=== PATIENT | female | born 1975 | race Caucasian/White ===

== ENCOUNTER 2016-07-28 12:38 | Emergency (ER) | payer BC ==
--- NOTE | 2016-07-28 13:33 | ED CLINICAL REPORT ---
Clinical Report - Physicians/Mid Levels [facility] [address] [place] [address] 07/28/2016 12:40 [id number] Time Seen: 13:10 Jul 28 2016. Arrived- By private vehicle. Historian- patient. HISTORY OF PRESENT ILLNESS Chief Complaint: BACK PAIN. It is described as being in the area of the mid lumbar spine, lower lumbar spine and right mid lumbar spine. The quality is noted to be "pain". Onset was just prior to arrival and it is still present. No bladder dysfunction, bowel dysfunction, sensory loss or motor loss. Additional history - Pt reports sitting on toilet had pain upon attempting to stand . Pain worsens with movement/ activity. Improves with standing. No driect trauma/ fall. H/o similar. Pt with h/o back pain/ sciatica, as well as neck pain. Denies any current paresthesias. Patient denies an injury. REVIEW OF SYSTEMS No fever, chills, difficulty with urination, hematuria or headache. No depression, difficulty breathing, chest pain or nausea. All systems otherwise negative, except as recorded above. PAST HISTORY The patient has had prior back pain. SOCIAL HISTORY Smoker- current status unknown. Alcohol use. History of drug use: marijuana. Not an IV drug user. ADDITIONAL NOTES The nursing notes have been reviewed. PHYSICAL EXAM Vital Signs: 07/28/2016 12:49 BP: 134/88. HR: 70. RR: 18. O2 saturation: 99%. Temp: 98.7 F. Pain level now: 10. Appearance: Alert. No acute distress. ENT: No pharyngeal erythema. Neck: Normal inspection. Neck nontender. CVS: Heart sounds normal. Respiratory: No respiratory distress. Abdomen: No visible injury. Soft. Back: Soft tissue tenderness (right lumbar region.). (no midline tendernss.). Skin: Skin warm. Normal skin color. Neuro: Oriented X 3. No motor deficit. No sensory deficit. PROGRESS AND PROCEDURES Course of Care: There are no risks for spinal epidural abscess or hematoma as patient is without any risk factors such as IVDA or evidence of active infection, no midline tenderness to percussion. Hence I do not feel emergent imaging with an MRI is indicated. However I did discuss with the patient that if these symptoms develop, or if the pain does not resolve an MRI may need to be done outpatient, or in the ED if symptoms worsen acutely or new onset of the above mentioned symptoms develop. Pt with no red flags, reproducible pain, and status post movement/ standing activity. No direct trauma. FX not suspected. Pt with no suspected cauda equina/ spinal cord mass or abscess, afebrile. Patient is stable. Patient/family counseled. Disposition: Discharged. CLINICAL IMPRESSION Acute lumbar strain. INSTRUCTIONS Apply ice. Limit lifting. Do not work for two days. Prescription Medications: Hydrocodone/APAP 5mg / 325mg: take 1 orally every 6 hours. Dispense twelve (12). Robaxin 750 mg: Take 2 orally every 6 hours as needed for muscle spasm. Dispense thirty (30). No refills. Substitution is permissible. Motrin 800 mg tablets: take 1 tablet orally every 8 hours for 5 days, as needed for pain. Dispense fifteen (15). No refill. Substitution is permissible. Follow-up with: Ruben Steiner MD, [facility], , [place], [address] [place] [address] Follow up. Call for the next available appointment. (Electronically signed by Shell Perez P.A.-C 07/28/2016 13:37)
--- NOTE | 2016-07-28 13:33 | ED ORDER SUMMARY ---
..... Patient: ROSI PRAJAPATI OrderSheet [facility] VisitID: [id number] [place] [address] 41y, F Registration Date/Time: 07/28/2016 ORDER SHEET Weight: 77.1 kg (stated) Allergies: No Known Drug Allergy GENERAL ORDERS: MEDICATION ORDERS: Flexeril PO 10 mg (NOW) (13:09 07/28/2016 Keturah P.A.-C) (Ack 13:21 SStone R.N.) (13:24 SStone R.N.) Hydrocodone-APAP PO 5/325 mg (NOW, HIGH ALERT MEDICATION) (13:09 07/28/2016 Keturah Rajput.AOswald-Saundra) (Ack 13:21 SStone R.N.) (13:24 SStone R.N.) IV FLUIDS: ORDER SHEET NOTES: [Electronically signed by Shell Preez P.A.-C (13:37 07/28/2016)] [Electronically signed by Kinsey Trinidad R.N. (16:55 07/30/2016)] [Electronically locked/signed by Kinsey Trinidad R.N. (16:55 07/30/2016)]
--- NOTE | 2016-07-28 13:33 | ED NURSING NOTES ---
Clinical Report - Nurses [facility] [address] [place] [address] 07/28/2016 12:40 [id number] TRI[facility] Triage time 12:49. Acuity: LEVEL 3. Chief Complaint: BACK PAIN. Alert. MEHREEN COMA SCORE: [place] Coma Scale: 15- eyes open spontaneously (4); best verbal response- oriented x 4 (5); best motor response- obeys commands (6). --12:56 Kinsey Trinidad R.N. 12:49 07/28/16. BP: 134/88. HR: 70. RR: 18. O2 saturation: 99% on room air. Temp: 98.7 F (oral). Pain level now: 11/21. --12:56 Kinsey Trinidad R.N. Weight: 77.1 kg stated. Height/Length: 64 inches Per Patient. BMI: 29.2. --12:53 Kinsey Trinidad R.N. Medications None. --12:51 Kinsey Trinidad R.N. Allergies No Known Drug Allergy. --12:51 Kinsey Trinidad R.N. History Arrived by private vehicle. Historian: patient. Accompanied by family. Primary physician (none). This started last night. ( constant and achy) and describes the quality as a stabbing pain. Relates the location as in the lower lumbar region, right lumbar region, right hip region and right buttock region. It is described as radiating to the right lower extremity. PAST MEDICAL HX: Last normal menstrual period now. SOCIAL HX: Smoker- current status unknown (no). Occasional alcohol use. History of drug use: marijuana. FALL RISK ASSESSMENT: Fall risk assessment completed. No fall risk identified. FUNCTIONAL ASSESSMENT: Functional assessment: no impairments noted. LEARNING NEEDS ASSESSMENT: The learning needs assessment revealed no barriers. --12:56 Kinsey Trinidad R.N. PROBLEMS: Hypertension. Cellulitis. Acute Pain. Sprain. Back Pain. --12:52 Amos, Kinsey, R.N. ADDITIONAL SURGERIES: Finger abscess and surgery. --12:52 Kinsey Trinidad R.N. Assessment GENERAL / NEURO / PSYCH: The patient is awake and alert, appears uncomfortable and is oriented and cooperative. She appears uncomfortable and has good eye contact. RESPIRATORY: Respirations not labored. SKIN: Skin is warm and dry. --12:56 Kinsey Trinidad R.N. Interventions ID band on patient. To treatment room. --12:56 Kinsey Trinidad R.N. PHYSICAL ASSESSMENT 13:00 07/28/16. Ambulatory to room. GENERAL / NEURO / PSYCH: The patient is awake and alert, appears uncomfortable and is oriented and cooperative. She appears uncomfortable and has good eye contact. RESPIRATORY: Respirations not labored. --13:00 Kinsey Trinidad R.N. NURSING PROGRESS NOTES 13:00 07/28/16. Head of bed elevated. Call light placed in reach. Side rails up x 1. Bed placed in lowest position. Brakes of bed on. --13:00 Kinsey Trinidad R.N. 13:24 07/28/2016 Flexeril (Cyclobenzaprine HCl) PO Tablets 10 mg given. --13:24 Tigist Joe R.N. 13:24 07/28/2016 Hydrocodone-APAP (Hydrocodone-Acetaminophen) PO 5/325 mg Tablets 1 tab given. --13:24 Tigist Joe R.N. 13:45 07/28/2016 Flexeril PO Response: no adverse reaction pain is improving. Symptoms have improved. --13:50 Gabe Ramos R.N. 13:45 07/28/2016 Hydrocodone-APAP PO Response: no adverse reaction pain is improving. Symptoms have improved. --13:50 Gabe Ramos R.N. DISPOSITION / DISCHARGE Departure time: 13:50 Jul 28 2016. Condition at departure: improved and stable. The goals identified in the patient's plan of care were met. No learning barriers present. Discharge instructions provided and reviewed with the patient and family. Reviewed warnings (Do not drive under influence of Rx medications). Reviewed medication(s) side effects, precautions, dosing and course information. Prescription(s) given to the patient. Reviewed referral to a primary care physician. Activity restrictions (light lifting, no driving and rest) reviewed. Work note given. Patient and family verbalized understanding. Written instructions provided in Hungarian. The patient was discharged by the physician medical assistant cardiology. She was discharged home and accompanied by spouse. She left the Emergency Department ambulatory and via private vehicle. Family member driving. --13:50 Gabe Ramos R.N. 13:38 07/28/16. BP: 126/84. HR: 63. RR: 20. O2 saturation: 95%. Temp: 98 F. Pain level now: 10/22. --13:50 Gabe Ramos R.N. Locked/Released at 07/30/2016 16:55 by Kinsey Trinidad R.N.
--- NOTE | 2016-07-28 13:33 | ED NURSING NOTES ---
Clinical Report - Nurses [facility] [address] [place] [address] 07/28/2016 12:40 [id number] TRI[facility] Triage time 12:49. Acuity: LEVEL 3. Chief Complaint: BACK PAIN. Alert. MEHREEN COMA SCORE: [place] Coma Scale: 15- eyes open spontaneously (4); best verbal response- oriented x 4 (5); best motor response- obeys commands (6). --12:56 Kinsey Trinidad R.N. 12:49 07/28/16. BP: 134/88. HR: 70. RR: 18. O2 saturation: 99% on room air. Temp: 98.7 F (oral). Pain level now: 11/21. --12:56 Kinsey Trinidad R.N. Weight: 77.1 kg stated. Height/Length: 64 inches Per Patient. BMI: 29.2. --12:53 Kinsey Trinidad R.N. Medications None. --12:51 Kinsey Trinidad R.N. Allergies No Known Drug Allergy. --12:51 Kinsey Trinidad R.N. History Arrived by private vehicle. Historian: patient. Accompanied by family. Primary physician (none). This started last night. ( constant and achy) and describes the quality as a stabbing pain. Relates the location as in the lower lumbar region, right lumbar region, right hip region and right buttock region. It is described as radiating to the right lower extremity. PAST MEDICAL HX: Last normal menstrual period now. SOCIAL HX: Smoker- current status unknown (no). Occasional alcohol use. History of drug use: marijuana. FALL RISK ASSESSMENT: Fall risk assessment completed. No fall risk identified. FUNCTIONAL ASSESSMENT: Functional assessment: no impairments noted. LEARNING NEEDS ASSESSMENT: The learning needs assessment revealed no barriers. --12:56 Kinsey Trinidad R.N. PROBLEMS: Hypertension. Cellulitis. Acute Pain. Sprain. Back Pain. --12:52 Amos, Kinsey, R.N. ADDITIONAL SURGERIES: Finger abscess and surgery. --12:52 Kinsey Trinidad R.N. Assessment GENERAL / NEURO / PSYCH: The patient is awake and alert, appears uncomfortable and is oriented and cooperative. She appears uncomfortable and has good eye contact. RESPIRATORY: Respirations not labored. SKIN: Skin is warm and dry. --12:56 Kinsey Trinidad R.N. Interventions ID band on patient. To treatment room. --12:56 Kinsey Trinidad R.N. PHYSICAL ASSESSMENT 13:00 07/28/16. Ambulatory to room. GENERAL / NEURO / PSYCH: The patient is awake and alert, appears uncomfortable and is oriented and cooperative. She appears uncomfortable and has good eye contact. RESPIRATORY: Respirations not labored. --13:00 Kinsey Trinidad R.N. NURSING PROGRESS NOTES 13:00 07/28/16. Head of bed elevated. Call light placed in reach. Side rails up x 1. Bed placed in lowest position. Brakes of bed on. --13:00 Kinsey Trinidad R.N. 13:24 07/28/2016 Flexeril (Cyclobenzaprine HCl) PO Tablets 10 mg given. --13:24 Tigist Joe R.N. 13:24 07/28/2016 Hydrocodone-APAP (Hydrocodone-Acetaminophen) PO 5/325 mg Tablets 1 tab given. --13:24 Tigist Joe R.N. 13:45 07/28/2016 Flexeril PO Response: no adverse reaction pain is improving. Symptoms have improved. --13:50 Gabe Ramos R.N. 13:45 07/28/2016 Hydrocodone-APAP PO Response: no adverse reaction pain is improving. Symptoms have improved. --13:50 Gabe Ramos R.N. DISPOSITION / DISCHARGE Departure time: 13:50 Jul 28 2016. Condition at departure: improved and stable. The goals identified in the patient's plan of care were met. No learning barriers present. Discharge instructions provided and reviewed with the patient and family. Reviewed warnings (Do not drive under influence of Rx medications). Reviewed medication(s) side effects, precautions, dosing and course information. Prescription(s) given to the patient. Reviewed referral to a primary care physician. Activity restrictions (light lifting, no driving and rest) reviewed. Work note given. Patient and family verbalized understanding. Written instructions provided in Rwandan. The patient was discharged by the physician product development assistant. She was discharged home and accompanied by spouse. She left the Emergency Department ambulatory and via private vehicle. Family member driving. --13:50 Gabe Ramos R.N. 13:38 07/28/16. BP: 126/84. HR: 63. RR: 20. O2 saturation: 95%. Temp: 98 F. Pain level now: 10/22. --13:50 Gabe Ramos R.N. Locked/Released at 07/30/2016 16:55 by Kinsey Trinidad R.N.
--- NOTE | 2016-07-28 13:33 | ED CLINICAL REPORT ---
Clinical Report - Physicians/Mid Levels [facility] [address] [place] [place] [address] 07/28/2016 12:40 [id number] Time Seen: 13:10 Jul 28 2016. Arrived- By private vehicle. Historian- patient. HISTORY OF PRESENT ILLNESS Chief Complaint: BACK PAIN. It is described as being in the area of the mid lumbar spine, lower lumbar spine and right mid lumbar spine. The quality is noted to be "pain". Onset was just prior to arrival and it is still present. No bladder dysfunction, bowel dysfunction, sensory loss or motor loss. Additional history - Pt reports sitting on toilet had pain upon attempting to stand . Pain worsens with movement/ activity. Improves with standing. No driect trauma/ fall. H/o similar. Pt with h/o back pain/ sciatica, as well as neck pain. Denies any current paresthesias. Patient denies an injury. REVIEW OF SYSTEMS No fever, chills, difficulty with urination, hematuria or headache. No depression, difficulty breathing, chest pain or nausea. All systems otherwise negative, except as recorded above. PAST HISTORY The patient has had prior back pain. SOCIAL HISTORY Smoker- current status unknown. Alcohol use. History of drug use: marijuana. Not an IV drug user. ADDITIONAL NOTES The nursing notes have been reviewed. PHYSICAL EXAM Vital Signs: 07/28/2016 12:49 BP: 134/88. HR: 70. RR: 18. O2 saturation: 99%. Temp: 98.7 F. Pain level now: 10. Appearance: Alert. No acute distress. ENT: No pharyngeal erythema. Neck: Normal inspection. Neck nontender. CVS: Heart sounds normal. Respiratory: No respiratory distress. Abdomen: No visible injury. Soft. Back: Soft tissue tenderness (right lumbar region.). (no midline tendernss.). Skin: Skin warm. Normal skin color. Neuro: Oriented X 3. No motor deficit. No sensory deficit. PROGRESS AND PROCEDURES Course of Care: There are no risks for spinal epidural abscess or hematoma as patient is without any risk factors such as IVDA or evidence of active infection, no midline tenderness to percussion. Hence I do not feel emergent imaging with an MRI is indicated. However I did discuss with the patient that if these symptoms develop, or if the pain does not resolve an MRI may need to be done outpatient, or in the ED if symptoms worsen acutely or new onset of the above mentioned symptoms develop. Pt with no red flags, reproducible pain, and status post movement/ standing activity. No direct trauma. FX not suspected. Pt with no suspected cauda equina/ spinal cord mass or abscess, afebrile. Patient is stable. Patient/family counseled. Disposition: Discharged. CLINICAL IMPRESSION Acute lumbar strain. INSTRUCTIONS Apply ice. Limit lifting. Do not work for two days. Prescription Medications: Hydrocodone/APAP 5mg / 325mg: take 1 orally every 6 hours. Dispense twelve (12). Robaxin 750 mg: Take 2 orally every 6 hours as needed for muscle spasm. Dispense thirty (30). No refills. Substitution is permissible. Motrin 800 mg tablets: take 1 tablet orally every 8 hours for 5 days, as needed for pain. Dispense fifteen (15). No refill. Substitution is permissible. Follow-up with: Ruben Steiner MD, [facility], , [facility], [address] [place] [address] Follow up. Call for the next available appointment. (Electronically signed by Shell Perez P.A.-C 07/28/2016 13:37)
--- NOTE | 2016-07-28 13:33 | ED ORDER SUMMARY ---
..... Patient: ROSI PRAJAPATI OrderSheet [facility] VisitID: [id number] [place] [address] 41y, F Registration Date/Time: 07/28/2016 ORDER SHEET Weight: 77.1 kg (stated) Allergies: No Known Drug Allergy GENERAL ORDERS: MEDICATION ORDERS: Flexeril PO 10 mg (NOW) (13:09 07/28/2016 Keturah P.A.-C) (Ack 13:21 SStone R.N.) (13:24 SStone R.N.) Hydrocodone-APAP PO 5/325 mg (NOW, HIGH ALERT MEDICATION) (13:09 07/28/2016 Keturah Rajput.AOswald-Saundra) (Ack 13:21 SStone R.N.) (13:24 SStone R.N.) IV FLUIDS: ORDER SHEET NOTES: [Electronically signed by Shell Perez P.A.-C (13:37 07/28/2016)] [Electronically signed by Kinsey Trinidad R.N. (16:55 07/30/2016)] [Electronically locked/signed by Kinsey Trinidad R.N. (16:55 07/30/2016)]
--- NOTE | 2016-07-30 16:56 | ED DISCHARGE INSTRUCTIONS ---
Patient: ROSI PRAJAPATI General Instructions [facility] VisitID: [id number] [place] [address] 41y, F Registration Date/Time: 07/28/2016 Acute lumbar strain. INSTRUCTIONS Apply ice. Limit lifting. Do not work for two days. Prescription Medications: Hydrocodone/APAP 5mg / 325mg: take 1 orally every 6 hours. Dispense twelve (12). Robaxin 750 mg: Take 2 orally every 6 hours as needed for muscle spasm. Dispense thirty (30). No refills. Substitution is permissible. Motrin 800 mg tablets: take 1 tablet orally every 8 hours for 5 days, as needed for pain. Dispense fifteen (15). No refill. Substitution is permissible. Follow-up with: Ruben Steiner MD, [facility], , [facility], [address] [place] [address] Follow up. Call for the next available appointment. ADDITIONAL INFORMATION Sciatica Sciatica ("Lumbar Radiculopathy") causes a pain that spreads from the lower back down into the buttock, hip and leg. Sometimes leg pain can occur without any back pain. Sciatica is due to irritation or pressure on a spinal nerve as it comes out of the spinal canal. This is most often due to a bulge or rupture of a nearby spinal disk (the cartilage cushion between each spinal bone), which presses on a nearby nerve. Other causes include spinal stenosis (narrowing of the spinal canal) and spasm of the pyriform muscle (a muscle in the buttocks that the sciatic nerve passes through). Sciatica may begin after a sudden twisting/bending force (such as in a car accident), or sometimes after a simple awkward movement. In either case, muscle spasm is commonly present and contributes to the pain. The diagnosis of sciatica is made from the symptoms and physical exam. Unless you had a physical injury (such as a car accident or fall), X-rays are usually not ordered for the initial evaluation of sciatica because the nerves and disks cannot be seen on an x-ray. If signs of a compressed nerve are present (for example, loss of tendon reflex or strength in the leg), an MRI (magnetic resonance imaging) scan will need to be scheduled as an outpatient. Most sciatica (80-90%) gets better with medicine, exercise, physical therapy. If symptoms continue after at least three months of medical treatment, surgery may be considered. Home Care: You may need to stay in bed the first few days. But, as soon as possible, begin sitting or walking to avoid problems with prolonged bed rest. When in bed, try to find a position of comfort. A firm mattress is best. Try lying flat on your back with pillows under your knees. You can also try lying on your side with your knees bent up towards your chest and a pillow between your knees. Avoid prolonged sitting. This puts more stress on the lower back than standing or walking. Some persons find relief with heat (hot shower, hot bath or heating pad) and massage, while others prefer cold packs (crushed or cubed ice in a plastic bag, wrapped in a towel). Try both and use the method that feels best for 20 minutes several times a day. You may use acetaminophen (Tylenol) or ibuprofen (Motrin, Advil) to control pain, unless another pain medicine was prescribed. [ NOTE: If you have chronic liver or kidney disease or ever had a stomach ulcer or GI bleeding, talk with your doctor before using these medicines.] Be aware of safe lifting methods and do not lift anything over 15 pounds until all the pain is gone. Follow Up with your doctor or this facility if your symptoms do not start to improve after one week. Physical therapy or further testing may be needed. [NOTE: If X-rays were taken, they will be reviewed by a radiologist. You will be notified of any new findings that may affect your care.] Get Prompt Medical Attention if any of the following occur: Pain becomes worse, not controlled by the prescribed medicine Weakness or numbness in one or both legs Numbness in the groin, genital area Loss of bowel or bladder control Hydrocodone Bitartrate, Acetaminophen Oral tablet What is this medicine? ACETAMINOPHEN; HYDROCODONE (a set a SHERON rajan fen; diego droe KOE done) is a pain reliever. It is used to treat mild to moderate pain. How should I use this medicine? Take this medicine by mouth. Swallow it with a full glass of water. Follow the directions on the prescription label. If the medicine upsets your stomach, take the medicine with food or milk. Do not take more than you are told to take. Talk to your financial sales representative regarding the use of this medicine in children. This medicine is not approved for use in children. What side effects may I notice from receiving this medicine? Side effects that you should report to your doctor or health home care aide as soon as possible: allergic reactions like skin rash, itching or hives, swelling of the face, lips, or tongue breathing problems confusion feeling faint or lightheaded, falls stomach pain yellowing of the eyes or skin Side effects that usually do not require medical attention (report to your doctor or health home care aide if they continue or are bothersome): nausea, vomiting stomach upset What may interact with this medicine? alcohol antihistamines isoniazid medicines for depression, anxiety, or psychotic disturbances medicines for sleep muscle relaxants naltrexone narcotic medicines (opiates) for pain phenobarbital ritonavir tramadol What if I miss a dose? If you miss a dose, take it as soon as you can. If it is almost time for your next dose, take only that dose. Do not take double or extra doses. Where should I keep my medicine? Keep out of the reach of children. This medicine can be abused. Keep your medicine in a safe place to protect it from theft. Do not share this medicine with anyone. Selling or giving away this medicine is dangerous and against the law. Store at room temperature between 15 and 30 degrees C (59 and 86 degrees F). Protect from light. Keep container tightly closed. Throw away any unused medicine after the expiration date. Discard unused medicine and used packaging carefully. Pets and children can be harmed if they find used or lost packages. What should I tell my health care provider before I take this medicine? They need to know if you have any of these conditions: brain tumor Crohn's disease, inflammatory bowel disease, or ulcerative colitis drink more than 3 alcohol-containing drinks per day drug abuse or addiction head injury heart or circulation problems kidney disease or problems going to the bathroom liver disease lung disease, asthma, or breathing problems an unusual or allergic reaction to acetaminophen, hydrocodone, other opioid analgesics, other medicines, foods, dyes, or preservatives or trying to get breast-feeding What should I watch for while using this medicine? Tell your doctor or health home care aide if your pain does not go away, if it gets worse, or if you have new or a different type of pain. You may develop tolerance to the medicine. Tolerance means that you will need a higher dose of the medicine for pain relief. Tolerance is normal and is expected if you take the medicine for a long time. Do not suddenly stop taking your medicine because you may develop a severe reaction. Your body becomes used to the medicine. This does NOT mean you are addicted. Addiction is a behavior related to getting and using a drug for a non-medical reason. If you have pain, you have a medical reason to take pain medicine. Your doctor will tell you how much medicine to take. If your doctor wants you to stop the medicine, the dose will be slowly lowered over time to avoid any side effects. You may get drowsy or dizzy when you first start taking the medicine or change doses. Do not drive, use machinery, or do anything that may be dangerous until you know how the medicine affects you. Stand or sit up slowly. There are different types of narcotic medicines (opiates) for pain. If you take more than one type at the same time, you may have more side effects. Give your health care provider a list of all medicines you use. Your doctor will tell you how much medicine to take. Do not take more medicine than directed. Call emergency for help if you have problems breathing. The medicine will cause constipation. Try to have a bowel movement at least every 2 to 3 days. If you do not have a bowel movement for 3 days, call your doctor or health home care aide. Too much acetaminophen can be very dangerous. Do not take Tylenol (acetaminophen) or medicines that contain acetaminophen with this medicine. Many non-prescription medicines contain acetaminophen. Always read the labels carefully. You have been given the following additional information: Back Pain W/ Sciatica Hydrocodone Bitartrate, Acetaminophen Oral tablet Limit lifting. Do not work for two days. (Electronically signed by Shell Perez P.A.-C 07/28/2016 13:37)
--- NOTE | 2016-07-30 16:56 | ED MED RECONCILIATION SUMMARY ---
Patient: ROSI PRAJAPATI Medication Reconciliation Report [facility] VisitID: [id number] [place] [address] 41y, F Registration Date/Time: 07/28/2016 Weight: 77.1 kg Height/Length: 64 in. BMI: 29.2 ALLERGIES: No Known Drug Allergy The patient's Home Medications are listed below: NONE. The source(s) of the original Home Medication information: Not obtained. The following Medications were given to the patient in the Emergency Department: Flexeril [PO] PO 10 mg, administered: 07/28/2016 1:24:00 PM Hydrocodone-APAP [PO] PO 1 tab, administered: 07/28/2016 1:24:00 PM The following Medications were prescribed to the patient: Hydrocodone/APAP 5mg / 325mg: take 1 orally every 6 hours. Dispense twelve (12). -- Shell Perez, P.A.-Saundra Robaxin 750 mg: Take 2 orally every 6 hours as needed for muscle spasm. Dispense thirty (30). No refills. Substitution is permissible. -- Shell Perez, P.A.-C Motrin 800 mg tablets: take 1 tablet orally every 8 hours for 5 days, as needed for pain. Dispense fifteen (15). No refill. Substitution is permissible. -- Shell Perez P.A.-C
--- NOTE | 2016-07-30 16:56 | ED MED RECONCILIATION SUMMARY ---
Patient: ROSI PRAJAPATI Medication Reconciliation Report [facility] VisitID: [id number] [place] [address] 41y, F Registration Date/Time: 07/28/2016 Weight: 77.1 kg Height/Length: 64 in. BMI: 29.2 ALLERGIES: No Known Drug Allergy The patient's Home Medications are listed below: NONE. The source(s) of the original Home Medication information: Not obtained. The following Medications were given to the patient in the Emergency Department: Flexeril [PO] PO 10 mg, administered: 07/28/2016 1:24:00 PM Hydrocodone-APAP [PO] PO 1 tab, administered: 07/28/2016 1:24:00 PM The following Medications were prescribed to the patient: Hydrocodone/APAP 5mg / 325mg: take 1 orally every 6 hours. Dispense twelve (12). -- Shell Perez, P.A.-Saundra Robaxin 750 mg: Take 2 orally every 6 hours as needed for muscle spasm. Dispense thirty (30). No refills. Substitution is permissible. -- Shell Perez, P.A.-C Motrin 800 mg tablets: take 1 tablet orally every 8 hours for 5 days, as needed for pain. Dispense fifteen (15). No refill. Substitution is permissible. -- Shell Perez P.A.-C
--- NOTE | 2016-07-30 16:56 | ED DISCHARGE INSTRUCTIONS ---
Patient: ROSI PRAJAPATI General Instructions [facility] VisitID: [id number] [place] [address] 41y, F Registration Date/Time: 07/28/2016 Acute lumbar strain. INSTRUCTIONS Apply ice. Limit lifting. Do not work for two days. Prescription Medications: Hydrocodone/APAP 5mg / 325mg: take 1 orally every 6 hours. Dispense twelve (12). Robaxin 750 mg: Take 2 orally every 6 hours as needed for muscle spasm. Dispense thirty (30). No refills. Substitution is permissible. Motrin 800 mg tablets: take 1 tablet orally every 8 hours for 5 days, as needed for pain. Dispense fifteen (15). No refill. Substitution is permissible. Follow-up with: Ruben Steiner MD, [facility], , [facility], [address] [place] [address] Follow up. Call for the next available appointment. ADDITIONAL INFORMATION Sciatica Sciatica ("Lumbar Radiculopathy") causes a pain that spreads from the lower back down into the buttock, hip and leg. Sometimes leg pain can occur without any back pain. Sciatica is due to irritation or pressure on a spinal nerve as it comes out of the spinal canal. This is most often due to a bulge or rupture of a nearby spinal disk (the cartilage cushion between each spinal bone), which presses on a nearby nerve. Other causes include spinal stenosis (narrowing of the spinal canal) and spasm of the pyriform muscle (a muscle in the buttocks that the sciatic nerve passes through). Sciatica may begin after a sudden twisting/bending force (such as in a car accident), or sometimes after a simple awkward movement. In either case, muscle spasm is commonly present and contributes to the pain. The diagnosis of sciatica is made from the symptoms and physical exam. Unless you had a physical injury (such as a car accident or fall), X-rays are usually not ordered for the initial evaluation of sciatica because the nerves and disks cannot be seen on an x-ray. If signs of a compressed nerve are present (for example, loss of tendon reflex or strength in the leg), an MRI (magnetic resonance imaging) scan will need to be scheduled as an outpatient. Most sciatica (80-90%) gets better with medicine, exercise, physical therapy. If symptoms continue after at least three months of medical treatment, surgery may be considered. Home Care: You may need to stay in bed the first few days. But, as soon as possible, begin sitting or walking to avoid problems with prolonged bed rest. When in bed, try to find a position of comfort. A firm mattress is best. Try lying flat on your back with pillows under your knees. You can also try lying on your side with your knees bent up towards your chest and a pillow between your knees. Avoid prolonged sitting. This puts more stress on the lower back than standing or walking. Some persons find relief with heat (hot shower, hot bath or heating pad) and massage, while others prefer cold packs (crushed or cubed ice in a plastic bag, wrapped in a towel). Try both and use the method that feels best for 20 minutes several times a day. You may use acetaminophen (Tylenol) or ibuprofen (Motrin, Advil) to control pain, unless another pain medicine was prescribed. [ NOTE: If you have chronic liver or kidney disease or ever had a stomach ulcer or GI bleeding, talk with your doctor before using these medicines.] Be aware of safe lifting methods and do not lift anything over 15 pounds until all the pain is gone. Follow Up with your doctor or this facility if your symptoms do not start to improve after one week. Physical therapy or further testing may be needed. [NOTE: If X-rays were taken, they will be reviewed by a radiologist. You will be notified of any new findings that may affect your care.] Get Prompt Medical Attention if any of the following occur: Pain becomes worse, not controlled by the prescribed medicine Weakness or numbness in one or both legs Numbness in the groin, genital area Loss of bowel or bladder control Hydrocodone Bitartrate, Acetaminophen Oral tablet What is this medicine? ACETAMINOPHEN; HYDROCODONE (a set a SHERON rajan fen; diego droe KOE done) is a pain reliever. It is used to treat mild to moderate pain. How should I use this medicine? Take this medicine by mouth. Swallow it with a full glass of water. Follow the directions on the prescription label. If the medicine upsets your stomach, take the medicine with food or milk. Do not take more than you are told to take. Talk to your breading machine tender regarding the use of this medicine in children. This medicine is not approved for use in children. What side effects may I notice from receiving this medicine? Side effects that you should report to your doctor or health client care representative as soon as possible: allergic reactions like skin rash, itching or hives, swelling of the face, lips, or tongue breathing problems confusion feeling faint or lightheaded, falls stomach pain yellowing of the eyes or skin Side effects that usually do not require medical attention (report to your doctor or health client care representative if they continue or are bothersome): nausea, vomiting stomach upset What may interact with this medicine? alcohol antihistamines isoniazid medicines for depression, anxiety, or psychotic disturbances medicines for sleep muscle relaxants naltrexone narcotic medicines (opiates) for pain phenobarbital ritonavir tramadol What if I miss a dose? If you miss a dose, take it as soon as you can. If it is almost time for your next dose, take only that dose. Do not take double or extra doses. Where should I keep my medicine? Keep out of the reach of children. This medicine can be abused. Keep your medicine in a safe place to protect it from theft. Do not share this medicine with anyone. Selling or giving away this medicine is dangerous and against the law. Store at room temperature between 15 and 30 degrees C (59 and 86 degrees F). Protect from light. Keep container tightly closed. Throw away any unused medicine after the expiration date. Discard unused medicine and used packaging carefully. Pets and children can be harmed if they find used or lost packages. What should I tell my health care provider before I take this medicine? They need to know if you have any of these conditions: brain tumor Crohn's disease, inflammatory bowel disease, or ulcerative colitis drink more than 3 alcohol-containing drinks per day drug abuse or addiction head injury heart or circulation problems kidney disease or problems going to the bathroom liver disease lung disease, asthma, or breathing problems an unusual or allergic reaction to acetaminophen, hydrocodone, other opioid analgesics, other medicines, foods, dyes, or preservatives or trying to get breast-feeding What should I watch for while using this medicine? Tell your doctor or health client care representative if your pain does not go away, if it gets worse, or if you have new or a different type of pain. You may develop tolerance to the medicine. Tolerance means that you will need a higher dose of the medicine for pain relief. Tolerance is normal and is expected if you take the medicine for a long time. Do not suddenly stop taking your medicine because you may develop a severe reaction. Your body becomes used to the medicine. This does NOT mean you are addicted. Addiction is a behavior related to getting and using a drug for a non-medical reason. If you have pain, you have a medical reason to take pain medicine. Your doctor will tell you how much medicine to take. If your doctor wants you to stop the medicine, the dose will be slowly lowered over time to avoid any side effects. You may get drowsy or dizzy when you first start taking the medicine or change doses. Do not drive, use machinery, or do anything that may be dangerous until you know how the medicine affects you. Stand or sit up slowly. There are different types of narcotic medicines (opiates) for pain. If you take more than one type at the same time, you may have more side effects. Give your health care provider a list of all medicines you use. Your doctor will tell you how much medicine to take. Do not take more medicine than directed. Call emergency for help if you have problems breathing. The medicine will cause constipation. Try to have a bowel movement at least every 2 to 3 days. If you do not have a bowel movement for 3 days, call your doctor or health client care representative. Too much acetaminophen can be very dangerous. Do not take Tylenol (acetaminophen) or medicines that contain acetaminophen with this medicine. Many non-prescription medicines contain acetaminophen. Always read the labels carefully. You have been given the following additional information: Back Pain W/ Sciatica Hydrocodone Bitartrate, Acetaminophen Oral tablet Limit lifting. Do not work for two days. (Electronically signed by Shell Perez P.A.-C 07/28/2016 13:37)
--- NOTE | 2016-07-30 16:56 | ED MAR SUMMARY ---
..... Medication Administration Record [facility] [address] [place] [address] Patient: ROSI PRAJAPATI Visit ID: [id number] 41y, F Weight: 77.1 kg Height/Length: 64 in BMI: 29.2 ALLERGIES: No Known Drug Allergy Given 13:07/28/2016 Tigist Joe R.N. Medication Administered: FLEXERIL [PO] (CYCLOBENZAPRINE HCL), Dose: 10 mg Tablets PO. Medication Ordered: Flexeril PO 10 mg (NOW). Given 13:07/28/2016 Tigist Joe R.N. Medication Administered: HYDROCODONE-APAP [PO] (HYDROCODONE-ACETAMINOPHEN), Dose: 1 tab 5/325 mg Tablets PO. Medication Ordered: Hydrocodone-APAP PO 5/325 mg (NOW, HIGH ALERT MEDICATION).
--- NOTE | 2016-07-30 16:56 | ED MAR SUMMARY ---
..... Medication Administration Record [facility] [address] [place] [address] Patient: ROSI PRAJAPATI Visit ID: [id number] 41y, F Weight: 77.1 kg Height/Length: 64 in BMI: 29.2 ALLERGIES: No Known Drug Allergy Given 13:07/28/2016 Tigist Joe R.N. Medication Administered: FLEXERIL [PO] (CYCLOBENZAPRINE HCL), Dose: 10 mg Tablets PO. Medication Ordered: Flexeril PO 10 mg (NOW). Given 13:07/28/2016 Tigist Joe R.N. Medication Administered: HYDROCODONE-APAP [PO] (HYDROCODONE-ACETAMINOPHEN), Dose: 1 tab 5/325 mg Tablets PO. Medication Ordered: Hydrocodone-APAP PO 5/325 mg (NOW, HIGH ALERT MEDICATION).
== END 2016-07-28 13:50 | disposition home or self-care (01) ==
LOC: ED SRH 12:38
DX: S39.012A Strain of muscle, fascia and tendon of lower back, initial encounter (principal); X58.XXXA Exposure to other specified factors, initial encounter; Y93.9 Activity, unspecified; Y92.012 Bathroom of single-family (private) house as the place of occurrence of the external cause; Y99.9 Unspecified external cause status

== ENCOUNTER 2016-10-11 09:41 | Outpatient (CLI) | payer BC ==
--- NOTE | 2016-10-11 10:49 | DIAGNOSTIC IMAGING REPORT ---
PROCEDURE: MR LUMBAR SPINE W/O CONTRAST INDICATION: BILAT LBP,RT SCIATICA TECHNIQUE: Noncontrast T1, T2, and STIR sagittal images. T1 and T2 axial images. COMPARISON: None. FINDINGS: L1-2: Normal. L2-3: Normal. L3-4: Normal. L4-5: Normal. L5-S1: Slight focal disc bulge at L5-S1 just to the right of midline. IMPRESSION: 1. Slight focal disc bulge at L5-S1 just to the right of midline.
== END 2016-10-11 23:00 ==
LOC: MRI SRH 09:41
DX: M51.27 Other intervertebral disc displacement, lumbosacral region (principal)